=== PATIENT | female | born 1950 | race Caucasian/White ===

== ENCOUNTER 2016-12-15 08:43 | Day surgery (SDC) | payer MEDICARE, BC ==
[2016-12-13 13:17] VITALS: BP 175/101
[2016-12-13 13:38] LABS: HEMATOCRIT 44.2 % (34.6-47.8); HEMOGLOBIN 14.9 g/dL (11.7-16.4); WHITE BLOOD COUNT 13.2 x10^3/uL (3.4-10)
[2016-12-13 13:50] LABS: ASPARTATE AMINO TRANSFERASE 17 U/L (15-37); BLOOD UREA NITROGEN 21 mg/dL (7-18)
[~2016-12-15] VITALS: Ht 157.5 cm; Wt 95.2 kg
[~2016-12-15 08:43] MED LIST: AMLO5TAB2 PO; ATOR40TA78 PO; CIPR500T3 PO; CLOP75TA PO; LISI-170 PO; METO50TA82 PO
[2016-12-15] MEDS ORDERED: LACTATED RINGERS 1,000 ML IV SCH ×2 (09:07→09:21)
[2016-12-15] MEDS ORDERED: METOPROLOL TARTRATE 100 MG TABLET PO ONE (09:20)
[2016-12-15] MEDS ORDERED: MIDAZOLAM 1 MG/ML, 2ML ONE (10:39)
[2016-12-15] MEDS ORDERED: CEFAZOLIN 1,000 MG ONE (10:40)
[2016-12-15] MEDS ORDERED: FENTANYL PF 100 MCG/2ML ONE (10:40)
[2016-12-15] MEDS ORDERED: LIDOCAINE-MPF 2% ,5ML ONE (10:40)
[2016-12-15] MEDS ORDERED: DEXAMETHASONE 4 MG/ML, 1ML ONE (10:40)
[2016-12-15] MEDS ORDERED: ONDANSETRON 2MG/ML, 2ML ONE (10:40)
[2016-12-15] MEDS ORDERED: PROPOFOL 10 MG/ML, 20ML ONE (10:40)
[2016-12-15] MEDS ORDERED: EPINEPHRINE 1 MG/ML, 1ML ONE (11:11)
[2016-12-15] MEDS ORDERED: LIDOCAINE/PF 1%, 30ML ONE (11:11)
[2016-12-15] MEDS ORDERED: LABETALOL 5MG/ML, 20ML IV PRN (12:00)
[2016-12-15] MEDS ORDERED: ACETAMINOPHEN 325 MG TABLET PO PRN (12:00)
[2016-12-15] MEDS ORDERED: hydrALAzine 20 MG/ML, 1ML IV PRN (12:00)
[2016-12-15] MEDS ORDERED: ONDANSETRON 2MG/ML, 2ML IVPush PRN (12:00)
[2016-12-15] MEDS ORDERED: PROMETHAZINE 25 MG/ML, 1ML IV PRN (12:00)
[2016-12-15] MEDS ORDERED: FENTANYL PF 100 MCG/2ML IV PRN (12:00)
[2016-12-15] MEDS ORDERED: MIDAZOLAM 1 MG/ML, 2ML IV PRN (12:00)
[2016-12-15] MEDS ORDERED: ALBUTEROL/IPRATROPIUM 2.5MG/0.5MG, 3 ML NPPB PRN (12:00)
[2016-12-15] MEDS ORDERED: OXYcodone 5 MG/5 ML ORAL.SOL UDC PO PRN (12:00)
[2016-12-15] MEDS ORDERED: HYDROmorphone 1 MG/ML, 1ML IV PRN (12:00)
[2016-12-15] MEDS ORDERED: MEPERIDINE/PF 25MG/0.5ML IVPush PRN (12:00)
[2016-12-15] MEDS ORDERED: OXYcodone 5 MG/5 ML ORAL.SOL UDC ONE (12:09)
[2016-12-15] MEDS ORDERED: ACETAMINOPHEN 650 MG/20.3 ML UDC ONE (12:09)
[2016-12-15] MEDS ORDERED: PROPOFOL 50 ML ONE (12:19)
[2016-12-15] MEDS ORDERED: ALBUTEROL SULFATE 2.5 MG/3 ML ONE (13:09)
== END 2016-12-15 15:30 ==
LOC: OUT 08:43
PROVIDERS: ATTEND Obstetrics & Gynecology Gynecology
DX: N95.0 Postmenopausal bleeding (principal); I10 Essential (primary) hypertension; E78.5 Hyperlipidemia, unspecified; Z86.73 Personal history of transient ischemic attack (TIA), and cerebral infarction without residual deficits; Z88.1 Allergy status to other antibiotic agents
CPT/HCPCS: 36415; 58558; 71020; 80053; 81001; 85025; 87077; 87086; 87186; 88305; 93005; 94640; J0171; J1100; J2250; J2405; J2704; J3010; J3490; J7120; J0690; J7620

== ENCOUNTER → 2017-06-22 | Outpatient (CLI) | payer MEDICARE, BC ==
[2017-06-22 13:55] LABS: CULTURE INDICATED? YES; MICROSCOPIC INDICATED
[2017-06-22 13:58] LABS: BASOPHILS # (AUTO) 0.06 x10^3/uL (0-0.1); BASOPHILS % (AUTO) 1 % (0-1); EOSINOPHILS # (AUTO) 0.38 x10^3/uL (0-0.4); EOSINOPHILS % (AUTO) 4 % (1-7); LYMPHOCYTES # (AUTO) 2.65 x10^3/uL (1-3.4); LYMPHOCYTES % (AUTO) 24 % (22-44); MD NO; MEAN CORPUSCULAR HEMOGLOBIN 30.5 pg (27.0-34.8); MEAN CORPUSCULAR HGB CONC 34.1 g/dL (32.4-35.8); MEAN CORPUSCULAR VOLUME 89.4 fL (80-100); MEAN PLATELET VOLUME 8.4 fL (7.4-10.4); MONOCYTES # (AUTO) 0.95 x10^3/uL (0.2-0.8); MONOCYTES % (AUTO) 9 % (2-9); NEUTROPHILS # (AUTO) 6.87 x10^3/uL (1.8-6.8); NEUTROPHILS % (AUTO) 63 % (42-75); PLATELET COUNT 241 x10^3/uL (130-400); RED BLOOD COUNT 5.02 x10^6/uL (3.82-5.3); RED CELL DISTRIBUTION WIDTH 13.3 % (9.6-15.2)
[2017-06-22 14:07] LABS: INTERNATIONAL NORMALIZED RATIO 0.94 (0.93-1.1); PROTHROMBIN TIME 9.7 Seconds (9.6-11.5)
[2017-06-22 14:13] LABS: ALANINE AMINOTRANSFERASE 26 U/L (12-78); ALBUMIN 3.4 g/dL (3.4-5.0); ANION GAP 7 mmol/L (5-15); CALCIUM 8.6 mg/dL (8.5-10.1); CHLORIDE 108 mmol/L (98-107); CREATININE 1.21 mg/dL (0.55-1.02)
[2017-06-22 14:15] LABS: ALKALINE PHOSPHATASE 145 U/L (45-117); BILIRUBIN,TOTAL 0.3 mg/dL (0.2-1.0); TOTAL PROTEIN 6.9 g/dL (6.4-8.2)
== END | disposition home or self-care (01) ==
LOC: STAR 12:53
PROVIDERS: ATTEND Obstetrics & Gynecology Gynecology
DX: Z01.818 Encounter for other preprocedural examination (principal); N95.0 Postmenopausal bleeding
CPT/HCPCS: 36415; 71046; 80053; 81001; 85025; 85610; 85730; 87086; 93005

== ENCOUNTER 2017-06-26 05:48 | Observation (INO) | payer MEDICARE, BC ==
[~2017-06-26] VITALS: Ht 157.5 cm; Wt 98.1 kg
[2017-06-26] MEDS ORDERED: LACTATED RINGERS 1,000 ML IV SCH (06:19)
[2017-06-26 06:23] VITALS: BP 142/82
[2017-06-26] MEDS ORDERED: LIDOCAINE/PF 1%, 30ML ONE ×2 (07:00→08:14)
[2017-06-26] MEDS ORDERED: OxyconTIN ER 10 MG TAB.ER PO ONE (07:00)
[2017-06-26] MEDS ORDERED: INDIGO CARMINE 0.8%, 5ML ONE ×2 (07:00→09:29)
[2017-06-26] MEDS ORDERED: ACETAMINOPHEN 500 MG TABLET PO ONE (07:00)
[2017-06-26] MEDS ORDERED: GABAPENTIN 300 MG CAPSULE PO ONE (07:00)
[2017-06-26] MEDS ORDERED: ONDANSETRON ODT 8 MG PO ONE (07:00)
[2017-06-26] MEDS ORDERED: EPINEPHRINE 1 MG/ML, 1ML ONE (07:00)
[2017-06-26] MEDS ORDERED: MIDAZOLAM 1 MG/ML, 2ML ONE (07:01)
[2017-06-26] MEDS ORDERED: FENTANYL PF 250 MCG/5ML ONE (07:01)
[2017-06-26] MEDS ORDERED: ROCURONIUM 10MG/ML,5ML ONE (07:02)
[2017-06-26] MEDS ORDERED: LIDOCAINE 2%, 10ML ONE (07:03)
[2017-06-26] MEDS ORDERED: PROPOFOL 10 MG/ML, 20ML ONE (07:03)
[2017-06-26] MEDS ORDERED: PHENYLEPHRINE 10 MG/ML ONE (07:04)
[2017-06-26] MEDS ORDERED: DEXAMETHASONE 4 MG/ML, 1ML ONE ×2 (07:05)
[2017-06-26] MEDS ORDERED: CEFOTETAN PMX 2GM/50ML 50 ML IVPB ONE (07:25)
[2017-06-26] MEDS ORDERED: OXYcodone 5 MG/5 ML ORAL.SOL UDC PO PRN (08:00)
[2017-06-26] MEDS ORDERED: MEPERIDINE/PF 25MG/0.5ML IVPush PRN (08:00)
[2017-06-26] MEDS ORDERED: LABETALOL 5MG/ML, 20ML IV PRN (08:00)
[2017-06-26] MEDS ORDERED: morphine SULFATE 10 MG/ML, 1ML IV PRN (08:00)
[2017-06-26] MEDS ORDERED: PROMETHAZINE 25 MG/ML, 1ML IV PRN (08:00)
[2017-06-26] MEDS ORDERED: hydrALAzine 20 MG/ML, 1ML IV PRN (08:00)
[2017-06-26] MEDS ORDERED: FENTANYL PF 100 MCG/2ML IV PRN (08:00)
[2017-06-26] MEDS ORDERED: LIDOCAINE 1%-EPI 1:100K, 30ML IM ONE (08:16)
[2017-06-26] MEDS ORDERED: FUROSEMIDE 20 MG/2 ML ONE (09:11)
[2017-06-26] MEDS ORDERED: HYDROcodone/APAP 5/325 TABLET PO PRN (12:30)
[2017-06-26] MEDS ORDERED: DIPHENHYDRAMINE 50 MG/ML, 1ML IVPush PRN (12:30)
[2017-06-26] MEDS ORDERED: ONDANSETRON 2MG/ML, 2ML IVPush PRN (12:30)
[2017-06-26] MEDS ORDERED: ONDANSETRON ODT 4 MG PO PRN (12:30)
[2017-06-26 13:07] VITALS: BP 161/78
[2017-06-26] MEDS: LACTATED RINGERS 1,000 ML IV SCH (13:20)
[2017-06-26] MEDS: METOPROLOL TARTRATE 50 MG TABLET PO SCH (18:14)
[2017-06-26 19:43] VITALS: BP 147/72
[2017-06-27 00:03] VITALS: BP 135/64
[2017-06-27] MEDS: LACTATED RINGERS 1,000 ML IV SCH (00:53)
[2017-06-27 04:06] VITALS: BP 147/72
[2017-06-27] MEDS: METOPROLOL TARTRATE 50 MG TABLET PO SCH (05:49)
[2017-06-27 07:23] VITALS: BP 193/91
[2017-06-27] MEDS ORDERED: SODIUM CHLORIDE FLUSH 3ML SYRINGE IVF SCH (09:00)
[2017-06-27] MEDS ORDERED: AMLODIPINE 5 MG TABLET PO SCH (09:00)
[2017-06-27] MEDS ORDERED: ATORVASTATIN 80 MG TABLET PO SCH (09:00)
[2017-06-27] MEDS ORDERED: CLOPIDOGREL 75 MG TABLET PO SCH (09:00)
[2017-06-27] MEDS ORDERED: LISINOPRIL 20 MG TABLET PO SCH (09:00)
[2017-06-27 09:51] LABS: CREATININE 1.05 mg/dL (0.55-1.02)
[2017-06-27] MEDS: hydrALAzine 20 MG/ML, 1ML IV PRN ×2 (11:31→15:02)
[2017-06-27 14:39] VITALS: BP 165/84
[2017-06-27] MEDS ORDERED: HYDR-3240 PO (16:40)
[2017-06-27 16:50] VITALS: BP 152/72
== END 2017-06-27 17:05 | disposition home or self-care (01) ==
LOC: OUT 05:48 → 4NOR 05:49
PROVIDERS: ADMIT Obstetrics & Gynecology Gynecology; ATTEND Obstetrics & Gynecology Gynecology
DX: N80.0 Endometriosis of uterus (principal); L72.0 Epidermal cyst; N83.202 Unspecified ovarian cyst, left side; N81.5 Vaginal enterocele; N20.0 Calculus of kidney; N95.0 Postmenopausal bleeding
CPT/HCPCS: 36415; 52332; 58552; 74018; 74178; 74420; 82565; 84520; 85014; 85018; 88307; 96374; 96376; C1758; C1769; C2617; G0378; J0171; J0360; J1100; J1940; J2250; J2370; J2704; J3010; J3490; J7120; Q0162; S0074

== ENCOUNTER → 2017-09-14 | Outpatient (CLI) | payer MEDICARE, BC ==
[~2017-09-14] MED LIST changes: +HYDR-3240 PO; +OMNIPAQUE 350 MG/ML, 100ML BOTTLE ONE
== END | disposition home or self-care (01) ==
LOC: CFH 11:36
PROVIDERS: ATTEND Specialist
DX: C56.1 Malignant neoplasm of right ovary (principal); I70.1 Atherosclerosis of renal artery; I71.4 Abdominal aortic aneurysm, without rupture; K57.30 Diverticulosis of large intestine without perforation or abscess without bleeding; N26.1 Atrophy of kidney (terminal); K44.9 Diaphragmatic hernia without obstruction or gangrene
CPT/HCPCS: 74177; Q9967

== ENCOUNTER → 2018-03-11 | Outpatient (CLI) | payer MEDICARE, BC ==
[~2018-03-11] MED LIST changes: +AMLO-150 PO; -AMLO5TAB2 PO; -OMNIPAQUE 350 MG/ML, 100ML BOTTLE ONE
== END | disposition home or self-care (01) ==
LOC: CFH 10:38
PROVIDERS: ATTEND Specialist
DX: N26.1 Atrophy of kidney (terminal) (principal); N28.1 Cyst of kidney, acquired
CPT/HCPCS: 74176; 82565

== ENCOUNTER → 2019-03-27 | Outpatient (CLI) | payer MEDICARE, BC | END | disposition home or self-care (01) | LOC: CFH 11:50 | PROVIDERS: ATTEND Specialist | DX: C56.1 Malignant neoplasm of right ovary (principal); K57.30 Diverticulosis of large intestine without perforation or abscess without bleeding; K44.9 Diaphragmatic hernia without obstruction or gangrene; I77.811 Abdominal aortic ectasia; N28.1 Cyst of kidney, acquired; N80.0 Endometriosis of uterus; M47.816 Spondylosis without myelopathy or radiculopathy, lumbar region; N88.9 Noninflammatory disorder of cervix uteri, unspecified; N83.9 Noninflammatory disorder of ovary, fallopian tube and broad ligament, unspecified; N32.89 Other specified disorders of bladder; Z90.49 Acquired absence of other specified parts of digestive tract | CPT/HCPCS: 74176 ==